=== PATIENT | male | born 1960 | race Caucasian/White ===

== ENCOUNTER 2016-10-29 09:25 | Day surgery (SDC) | payer OTHER ==
[~2016-10-29] VITALS: Ht 172.7 cm; Wt 72.0 kg
[~2016-10-29 09:25] MED LIST: OMEP40CA36 PO; Sodium Chloride LOK Flush 10 mL Syringe IV PRN; fentaNYL-PF 50 mCg/mL 2 mL Inj IVPUSH PRN
[2016-10-29 10:03] VITALS: BP 150/98; PULSE 95; RESP 16; O2SAT 96
[2016-10-29] MEDS: 0.9% Sodium Chloride 1,000 ML IV SCH ×3 (10:13→10:32)
[2016-10-29 10:43] VITALS: BP 142/85; PULSE 88; RESP 14; O2SAT 95
[2016-10-29 11:06] LABS: Mean Corpuscular Hemoglobin 31.4 pg (27.0-35.0); Mean Corpuscular Volume 92.6 fL (81-100)
--- NOTE | 2016-10-29 11:11 | ENDO ---
[address] [address] ENDOSCOPY PROCEDURE PATIENT: SAVANA THOMPSON : 1960 MR#: [id number] ADMIT: 10/29/2016 JOB ID: [id number] DATE: 10/29/2016 TYPE OF OPERATION: Esophagogastroduodenoscopy with biopsy with dilatation. PREOPERATIVE DIAGNOSIS(ES): Dysphagia. POSTOPERATIVE DIAGNOSIS(ES): 1. Mild nonerosive gastritis status post biopsy. 2. Status post TTS CRE balloon dilatation in serial fashion from 18-20 cm in diameter with good mucosa tear. ANESTHESIA: 1. Fentanyl 75 mcg. 2. Versed 3 mg IV administered. BLOOD LOSS: Minimal. DESCRIPTION OF PROCEDURE: After risks and benefits were explained to the patient, informed consent was obtained. After anesthesia administered, upper endoscope was inserted into mouth, intubated into the esophagus, stomach, second portion of duodenum, and mucosa carefully examined. After the procedure was done, the scope withdrawn and procedure terminated. FINDINGS: Upon inspection of the esophagus, the esophagus was normal without masses, ulcers, or lesions. Z-line located 40 cm from incisors. Upon entering the stomach, there was mild nonerosive gastritis was seen. No masses, ulcers, lesions were recognized. Retroflexion was normal. Duodenal bulb, first and second portion normal. Biopsies taken of antrum of stomach and mid and distal esophagus. Afterwards a TTS CRE balloon dilatation was performed in a serial fashion from 18-20 cm in diameter with good mucosal tear. IMPRESSIONS: 1. Mild nonerosive gastritis status post biopsy. 2. Status post CRE serial TTS balloon dilatation from 18-20 cm with good mucosal tear. RECOMMENDATIONS: 1. Anti reflux medication. 2. Await biopsy results. 3. Followup in GI clinic as needed.
--- NOTE | 2016-10-30 13:24 | PATH ---
SURGICAL PATHOLOGY Attending Physician:Miguel A Gonzales MD CASE STATUS: Signed Out PATIENT NAME: SAVNAA THOMPSON PID: [id number] : 1960 DATE COLLECTED:10/29/2016 16:27 SPECIMEN: 1: Esophagus, Biopsy 2: Esophagus, Biopsy 3: Gastric, Biopsy CLINICAL HISTORY: A: MID ESOPHAGUS BIOPSY B: DISTAL ESOPHAGUS BIOPSY C: GASTRIC BIOPSY FINAL DIAGNOSIS: 1.MID ESOPHAGUS, BIOPSIES: SQUAMOUS MUCOSA WITH NO DIAGNOSTIC ABNORMALITY. Intraepithelial eosinophils are not increased. Negative for dysplasia and malignancy. 2.DISTAL ESOPHAGUS, BIOPSY: SQUAMOUS MUCOSA WITH INCREASED INTRAEPITHELIAL EOSINOPHILS (UP TO 36 PER HIGH-POWERED FIELD), SEE COMMENT. Negative for dysplasia and malignancy. 3.STOMACH, BIOPSY: ANTRAL MUCOSA WITH MILD REACTIVE GASTROPATHY. Negative for Helicobacter pylori organisms. Negative for intestinal metaplasia. Negative for dysplasia and malignancy. ICD10 code R13.10 NOTE: 2. The distal esophageal biopsies show increased intraepithelial eosinophils (up to 36 per high-powered field) as well as scattered degranulated eosinophils. The mid esophageal biopsies show up to 3 intraepithelial eosinophils per high-powered field. There is significant overlap between the morphologic appearances of eosinophilic esophagitis and gastroesophageal reflux, particularly at the GE junction. However, the finding of greater than 15 eosinophils per high-powered field generally indicates a diagnosis of eosinophilic esophagitis, in the appropriate clinical and endoscopic setting. The differential diagnosis also includes drug reaction and food allergies. GROSS DESCRIPTION: The specimen is received in three formalin filled containers labeled with the patient's name. 1). The specimen is sublabeled "mid esophagus" and consists of a 0.2 x 0.2 x 0.1 CM portion of tissue which is entirely submitted in cassette 1A. 2). The specimen is sublabeled "distal esophagus" and consists of 2 portions of tissue which aggregate to 0.3 x 0.2 x 0.2 CM. The specimen is entirely submitted in cassette 2A. 3). The specimen is sublabeled "gastric" and consists of 2 portions of tissue which aggregate to 0.4 x 0.3 x 0.2 CM. The specimen is entirely submitted in cassette 3A. 10/29/2016 DAC MICRO DESCRIPTION: See diagnosis. ICD-9 CODES: CPT CODES: 1: 40024 2: 72678 3: 99314 Electronically Signed Out Alexandra Lucas MD [facility] [address], [place] [address] Technical component performed at [facility], [address], [place], [address]
== END 2016-10-29 12:13 | disposition home or self-care (01) ==
LOC: END 09:25
PROVIDERS: ATTEND Internal Medicine Gastroenterology
DX: K29.60 Other gastritis without bleeding (principal); R13.10 Dysphagia, unspecified; I10 Essential (primary) hypertension; Z85.46 Personal history of malignant neoplasm of prostate
CPT/HCPCS: 36415; 43239; 43249; 80053; 84153; 85027; 88305; G0500; J2250; J3010; J7030